=== PATIENT | male | born 1965 | race Hispanic/Latino ===

== ENCOUNTER 2016-07-16 18:18 | Emergency (ER) | payer SELFPAY ==
[~2016-07-16] VITALS: Ht 167.6 cm; Wt 63.0 kg
[~2016-07-16 18:18] MED LIST: LORTAB 5 OR; PENICILLN VK500 MG OR
[2016-07-16] MEDS ORDERED: NAPROXEN375 MG PO (18:28)
[2016-07-16] MEDS ORDERED: FLEXERIL5 MG PO (18:28)
[2016-07-16 18:47] LABS: HEMATOCRIT 40.7 % (39.0-50.0); HEMOGLOBIN 14.1 g/dl (14.0-18.0); IMMATURE GRANULOCYTES 0.8 % (0.0-1.0); MEAN CORPUSCULAR HGB 34.6 pG CALC (26.0-32.0); MEAN CORPUSCULAR HGB CONC 34.6 g/L CALC (32.0-36.0); NEUT# 15.42 thou/uL (1.82-7.42); RED BLOOD COUNT 4.07 mill/uL (4.70-6.10); RED CELL DISTRI WIDTH 11.8 % (11.5-15.5)
[2016-07-16 19:01] LABS: ALBUMIN 2.8 g/dL (3.2-5.0); ALKALINE PHOSPHATASE 128 u/l (38-126); ANION GAP 15 (6-22 (CALC)); BILIRUBIN, TOTAL 0.5 mg/dL (0.0-1.4); BUN 15 mg/dL (9-20); BUN/CREATININE RATIO 22 (12-20 (CALC)); CALCIUM 8.9 mg/dL (8.4-10.2); CARBON DIOXIDE 25 mmol/l (22-30); CHLORIDE 99 mmol/l (95-108); CREATININE 0.7 mg/dL (0.7-1.3); GFR > 60 ML/MIN (>=60 (CALC)); GFR FOR AFR.AMER. > 60 ML/MIN (>=60 (CALC)); GLUCOSE 91 mg/dL (75-110); POTASSIUM 4.4 mmol/l (3.5-5.1); SGOT/AST 20 u/l (17-59); SGPT/ALT 28 u/l (21-72); SODIUM 134 mmol/l (137-146); TOTAL PROTEIN 6.7 g/dL (6.3-8.2)
[2016-07-16 19:05] LABS: INFLUENZA A NONE DETECTED (NONE DETECT); INFLUENZA B NONE DETECTED (NONE DETECT)
[2016-07-16 21:17] LABS: URINE BILIRUBIN - DIPSTICK NEGATIVE (NEGATIVE); URINE BLOOD DIPSTICK MODERATE (NEGATIVE); URINE CLARITY HAZY; URINE COLOR YELLOW; URINE GLUCOSE - DIPSTICK NEGATIVE (NEGATIVE); URINE KETONE Negative (NEGATIVE); URINE LEUK ESTERASE SMALL (NEGATIVE); URINE NITRITE - DIPSTICK POSITIVE (Negative); URINE PH 5.5 (4.5-8.0); URINE PROTEIN - DIPSTICK NEGATIVE (NEG-TRACE)
[2016-07-16 21:18] LABS: URINE BACTERIA FEW hpf; URINE SQUAMOUS EPITHELIAL CELL FEW EPI/hpf (0-FEW)
[2016-07-16 22:45] VITALS: BP 122/76
--- NOTE | 2016-07-19 08:38 | NUR ---
Faxed finalized blood culture results to [facility] at [phone].
== END 2016-07-16 22:45 | disposition short-term general hospital (02) | DRG 552 ==
LOC: ED 18:18
DX: M51.27 Other intervertebral disc displacement, lumbosacral region (principal); J02.0 Streptococcal pharyngitis; R93.5 Abnormal findings on diagnostic imaging of other abdominal regions, including retroperitoneum

== ENCOUNTER 2016-07-30 20:30 | Inpatient (IN) | payer SELFPAY ==
[~2016-07-30] VITALS: Ht 167.6 cm; Wt 63.0 kg
[~2016-07-30 20:30] MED LIST changes: +FLEXERIL5 MG PO; +NAPROXEN375 MG PO
[2016-07-30 20:45] VITALS: BP 134/84
--- NOTE | 2016-07-30 21:00 | NUR ---
PATIENT ADMITTED FROM [facility] VIA WHEELCHAIR WITH TRANSPORT PERSON IN ATTENDANCE. PATIENT ASSIST TO SCALE AND THEN TO BED. PATIENT IS [place] SPEAKING ONLY. PATIENT IS BEING ADMITTED FOR SPONDYLODISKITIS WITH POSS LEFT PSOAS AND POSTERIOR PARAVERTEBRAL ABCESS. S/P BX-07/19/[address] [facility]. RIGHT SHOULDER BURSITIS WITH ASPIRATION ON 07/19/[address] [facility]. WILL NEED TOTAL ORF 8WEEKS OF ANTIBIOTICS. PATIENT WITH PICC TO LEFT UPPER ARM-SINGLE LUMEN-GOOD BLOOD RETURN AND FLUSHES FREELY. DRESSING IS CLEAN DRY AND INTACT. PATIENT DENIES ANY PAIN AT THIS TIME. PATIENT ATE SANDWICH, PUDDING AND DRINKS PROVIDED. PATIENT AMB TO THE BR TO VOID-STEADY GAIT. ORIENTED TO ROOM AND SURROUNDINGS. INSTRUCTED ON USE OF NURSE CALL LIGHT SYSTEM AND TV REMOTE. SAFETY PRECAUTIONS REINFORCED. CALL LIGHT IN REACH. WILL CONT TO MONITOR.
--- NOTE | 2016-07-30 23:45 | NUR ---
ANCEF HUNG ORDERED VIA LEFT PICC-PATENT WITH GOOD BLOOD RETURN. RESTING IN BED WITH NO COMPLAINTS. CALL LIGHT INR REACH. WILL CONT TO MONITOR.
[2016-07-31 00:27] VITALS: BP 131/78
[2016-07-31 05:14] VITALS: BP 122/77
--- NOTE | 2016-07-31 05:30 | NUR ---
MORNING LABS DRAWN FROM PICC-GOOD BLOOD RETURN-FLUSHED PER PROTOCOL WITH NS AND HEP KERMIT. PATIENT RESTING IN BED. C/O "UN POQUITO" LOWER BACK PAIN. VS TAKEN AND RECORDED. WILL CONT TO MONITOR.
[2016-07-31 05:56] LABS: HEMATOCRIT 35.4 % (39.0-50.0); HEMOGLOBIN 11.6 g/dl (14.0-18.0); IMMATURE GRANULOCYTES 0.3 % (0.0-1.0); MEAN CELL VOLUME 104.4 fL CALC (80.0-100.0); MEAN CORPUSCULAR HGB 34.2 pG CALC (26.0-32.0); MEAN CORPUSCULAR HGB CONC 32.8 g/L CALC (32.0-36.0); NEUT# 7.4 thou/uL (1.82-7.42); RED BLOOD COUNT 3.39 mill/uL (4.70-6.10); RED CELL DISTRI WIDTH 11.9 % (11.5-15.5)
[2016-07-31 06:07] LABS: ALKALINE PHOSPHATASE 133 u/l (38-126); ANION GAP 14 (6-22 (CALC)); BILIRUBIN, TOTAL 0.3 mg/dL (0.0-1.4); BUN 11 mg/dL (9-20); BUN/CREATININE RATIO 22 (12-20 (CALC)); CALCIUM 8.9 mg/dL (8.4-10.2); CARBON DIOXIDE 28 mmol/l (22-30); CHLORIDE 106 mmol/l (95-108); CREATININE 0.5 mg/dL (0.7-1.3); GFR > 60 ML/MIN (>=60 (CALC)); GFR FOR AFR.AMER. > 60 ML/MIN (>=60 (CALC)); GLUCOSE 90 mg/dL (75-110); POTASSIUM 4.2 mmol/l (3.5-5.1); SGOT/AST 27 u/l (17-59); SGPT/ALT 21 u/l (21-72); SODIUM 144 mmol/l (137-146); TOTAL PROTEIN 7.4 g/dL (6.3-8.2)
--- NOTE | 2016-07-31 07:00 | NUR ---
RECEIVED BEDSIDE REPORT FROM ROXANA SOSA. RESTING IN SUPINE POSITION WITH EYES CLOSED, AWAKENS EASILY. VOICES NO C/O AT THIS TIME. PLAN OF CARE DISCUSSED. SAFETY PRECAUTIONS REINFORCED. BED IN LOWEST POSITION WITH WHEELS LOCKED. CALL LIGHT WITHIN REACH. WILL CONTINUE TO MONITOR.
[2016-07-31 08:35] VITALS: BP 118/74
--- NOTE | 2016-07-31 09:50 | NUR ---
DR LEWIS IN WITH PT, NEW ORDERS RECEIVED.
[2016-07-31] MEDS ORDERED: ROCEPHIN 2 GM2 GM IV (11:34)
[2016-07-31] MEDS ORDERED: TRAMADOL HCL50 MG PO (11:34)
--- NOTE | 2016-07-31 15:00 | NUR ---
PICC TO LEFT UPPER ARM FLUSHED WITH HEPARIN PER HOSPITAL PROTOCOL. PT TOLERATED WELL.
--- NOTE | 2016-07-31 15:40 | NUR ---
Discharge instructions given. Patient verbalizes understanding of same. Discharged in stable condition via Wheelchair to Home with family. All belongings sent with pt.
== END 2016-07-31 15:40 | disposition home or self-care (01) | DRG 552 ==
LOC: ENPENDDIS → MS2 20:30
PROVIDERS: ADMIT Internal Medicine; ATTEND Internal Medicine
DX: M46.47 Discitis, unspecified, lumbosacral region (principal); B95.61 Methicillin susceptible Staphylococcus aureus infection as the cause of diseases classified elsewhere
CPT/HCPCS: J1650

== ENCOUNTER 2018-10-16 12:00 | Emergency (ER) | payer SELFPAY ==
[~2018-10-16] VITALS: Ht 152.4 cm; Wt 70.0 kg
[~2018-10-16 12:00] MED LIST changes: +FLEXERIL PO; +NAPROSYN500 MG PO; +ROCEPHIN 2 GM2 GM IV; +TRAMADOL HCL50 MG PO
[2018-10-16] MEDS ORDERED: MEDDOSEPAK PO (13:03)
[2018-10-16] MEDS ORDERED: TORADOL PO (13:03)
[2018-10-16 13:07] VITALS: BP 121/79
== END 2018-10-16 13:14 | disposition home or self-care (01) | DRG 563 ==
LOC: ED 12:00
DX: S46.911A Strain of unspecified muscle, fascia and tendon at shoulder and upper arm level, right arm, initial encounter (principal); F17.210 Nicotine dependence, cigarettes, uncomplicated; X50.3XXA Overexertion from repetitive movements, initial encounter; Y93.89 Activity, other specified; Y92.89 Other specified places as the place of occurrence of the external cause; Y99.0 Civilian activity done for income or pay